=== PATIENT | female | born 2005 | race Hispanic/Latino ===

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

== ENCOUNTER 2023-08-24 12:53 | Observation (INO) | payer MEDICAID ==
[~2023-08-24] VITALS: Ht 152.4 cm; Wt 61.2 kg
[2023-08-24 13:22] VITALS: BP 110/61; PULSE 93; RESP 18; O2SAT 98
[2023-08-24 14:17] LABS: APPEARANCE,URINE CLOUDY (CLEAR); BILIRUBIN,URINE NEGATIVE (NEGATIVE); COLOR,URINE YELLOW (YELLOW); GLUCOSE, URINE (UA) NEGATIVE (NEGATIVE); KETONES,URINE 10 mg/dL (NEGATIVE); LEUKOCYTE ESTERASE ,URINE 500 Leu/uL (NEGATIVE); NITRATE,URINE NEGATIVE (NEGATIVE); OCCULT BLOOD,URINE NEGATIVE (NEGATIVE); PROTEIN,URINE 20 mg/dL (NEGATIVE); UROBILINOGEN,URINE 0.2 mg/dL (0.2-1.0)
[2023-08-24 14:21] LABS: ADD UA MICROSCOPIC YES
[2023-08-24 14:28] LABS: BACTERIA,URINE RARE /HPF (None Seen); MUCUS,URINE FEW LPF (None Seen); OTHER CASTS, URINE 1 /LPF (None Seen); SQUAMOUS EPITHELIAL CELL,UR MANY /HPF (0-2)
[2023-08-24] MEDS: CEFTRIAXONE 1G VIAL IM ONE (14:55)
== END 2023-08-24 15:55 | disposition home or self-care (01) ==
LOC: EDH 12:53 → LDH 13:36
PROVIDERS: ADMIT Internal Medicine; ATTEND Internal Medicine
DX: O26.892 Other specified pregnancy related conditions, second trimester (principal); R10.2 Pelvic and perineal pain; Z3A.23 23 weeks gestation of pregnancy
CPT/HCPCS: 96372; 87077; 87088; 87186; 81001; 76857; G0378 ×2; G0379; J0696

== ENCOUNTER 2024-05-07 19:20 | Emergency (ER) | payer MEDICAID ==
[~2024-05-07] VITALS: Ht 165.1 cm; Wt 59.0 kg
[2024-05-07 19:51] LABS: BASOPHILS # (AUTO) 0.01 K/uL (0.00-0.20); BASOPHILS % (AUTO) 0.1 % (0.0-5.0); EOSINOPHILS # (AUTO) 0.01 K/uL (0.00-0.70); EOSINOPHILS % (AUTO) 0.1 % (0.0-8.0); IMMATURE GRANULOCYTE ABSOLUTE 0.05 K/uL (0-1); LYMPHOCYTES # (AUTO) 0.6 K/uL (1.0-4.8); LYMPHOCYTES % (AUTO) 4.3 % (21.0-51.0); MEAN CORPUSCULAR HGB CONC 31.7 g/dL (32.0-36.0); MEAN CORPUSCULAR VOLUME 78.9 fL (80-100); MONOCYTES # (AUTO) 0.9 K/uL (0.1-1.0); MONOCYTES % (AUTO) 6.8 % (3.0-13.0); NEUTROPHILS # (AUTO) 11.2 K/uL (1.8-7.7); NEUTROPHILS % (AUTO) 88.3 % (40.0-77.0); PLATELET COUNT (AUTO) 256 K/uL (130-400); RED BLOOD CELL COUNT(AUTO) 4.56 MIL/uL (4.00-5.50); RED CELL DISTRIBUTION WIDTH 15.4 % (11.0-15.5); WHITE BLOOD COUNT (AUTO) 12.7 K/uL (4.8-10.8)
[2024-05-07 19:56] LABS: APPEARANCE,URINE CLOUDY (CLEAR); BILIRUBIN,URINE NEGATIVE (NEGATIVE); COLOR,URINE COLORLESS (YELLOW); GLUCOSE, URINE (UA) NEGATIVE (NEGATIVE); KETONES,URINE 20 mg/dL (NEGATIVE); LEUKOCYTE ESTERASE ,URINE 250 Leu/uL (NEGATIVE); NITRATE,URINE NEGATIVE (NEGATIVE); OCCULT BLOOD,URINE LARGE (NEGATIVE); PROTEIN,URINE 70 mg/dL (NEGATIVE); UROBILINOGEN,URINE 0.2 mg/dL (0.2-1.0)
[2024-05-07] MEDS: 0.9%NACL 1000ML 1,000 ML IV STA (19:59)
[2024-05-07 20:01] LABS: ADD UA MICROSCOPIC YES
[2024-05-07 20:02] LABS: CREATININE 0.6 mg/dL (0.5-1.0); POTASSIUM 3.5 mmol/L (3.5-5.1)
[2024-05-07 20:03] LABS: BACTERIA,URINE RARE /HPF (None Seen); MUCUS,URINE RARE LPF (None Seen); SQUAMOUS EPITHELIAL CELL,UR FEW /HPF (0-2)
[2024-05-07 20:04] LABS: AMPHET/METH SCREEN,URINE NEGATIVE (NEGATIVE); BARBITURATE SCREEN, URINE NEGATIVE (NEGATIVE); BENZODIAZEPINES SCREEN,URINE NEGATIVE (NEGATIVE); CANNABINOID SCREEN,URINE NEGATIVE (NEGATIVE); COCAINE SCREEN,URINE NEGATIVE (NEGATIVE); OPIATE SCREEN,URINE NEGATIVE (NEGATIVE); PHENCYCLIDINE SCREEN,URINE NEGATIVE (NEGATIVE)
--- NOTE | 2024-05-07 20:50 | HMCIMG ---
ULTRASOUND OF THE PELVIS ULTRASOUND ABD VASCULAR LIMITED INDICATION: Pelvic pain COMPARISONS: None TECHNIQUE: Transabdominal real-time sonographic images were acquired earlier, and subsequently made available for review. FINDINGS: The uterus measures 10.1 x 5.8 x 5.8 cm. The uterus is normal in echotexture and contour. Single live intrauterine gestation corresponds to sonographic gestational age of 7 weeks 4 days +/- 2 days based on crown-rump length of 1.3 cm. No abnormal subchorionic hypoechoic area demonstrated. heart rate = 174 BPM. The right ovary measures 2.0 x 2.2 x 1.6 cm. The right ovary is normal in size, shape and echogenicity. No right adnexal masses demonstrated. Color Doppler flow is normal throughout the right ovary. Spectral Doppler analysis demonstrates a normal waveform pattern. The left ovary measures 2.3 x 1.8 x 2.2 cm. The left ovary is normal in size, shape and echogenicity. No left adnexal masses demonstrated. Color Doppler flow is normal throughout the left ovary. Spectral Doppler analysis demonstrates a normal waveform pattern. No free pelvic fluid demonstrated. IMPRESSION: 1. Single live intrauterine gestation corresponding to sonographic gestational age of 7 weeks 4 days +/- 2 days based on crown-rump length, and with heart rate = 174 BPM. 2. No evidence for subchorionic hemorrhage. 3. SHAHEEN = 12/23/2024.
[2024-05-07] MEDS ORDERED: CEPH500B PO (21:22)
[2024-05-07] MEDS: acetaMINOPHEN 500 MG TABLET PO ONE (21:23)
[2024-05-07] MEDS: cefTRIAXone 1G VIAL IVPB STA (21:23)
--- NOTE | 2024-05-07 21:23 | ERN ---
ED Note History of Present Illness Stated Complaint: OB UNKNOWN GESTATION, LOWER ABDOMINAL PAIN,VAG BLE Chief Complaint: OB<20 weeks gest. Time Seen by MD: 19:23 Time Seen by Midlevel: 19:26 Dictation: 18-year-old female arriving by EMS coming in with complaints of lower abdominal pain and spotting started today. Patient states she is , unknown gestational age, does not remember her LMP. G5, P4. Allergies: Coded Allergies: No Known Allergies (Unverified Allergy, Unknown, 08/22/19) Home Meds Reported Medications Melatonin (Melatonin) 1 Mg Tablet, 1 MG PO HS, TAB 11/17/20 Rzs223/FA/Omega3/Dha/Fish Oil ( Gummies) 1 Each Tab.chew, 1 EACH PO BID, TAB.CHEW 11/17/20 [id number]/FA/Omega3/Dha/Fish Oil ( Gummies) 1 Each Tab.chew, 1 EACH PO DAILY, TAB.CHEW 10/11/19 Past Medical History Past Medical History: Other Additional Past Medical Hx: ADHD Surgical History: None : 5 Para: 4 Review of System Dictation Constitutional: Negative for fever,chills, and weight loss Eyes: Negative for injury, pain,redness, and discharge ENT: Negative for injury,pain or swelling Cardiovascular: Negative for chest pain, palpitations, and edema Respiratory: Negative for shortness of breath, cough, and wheezing, Abdomen/GI: Lower abdominal pain, no nausea, no vomiting, no diarrhea, and no constipation Back: Negative for injury and pain : Negative for injury, bleeding and discharge MS/Extremity: Negative for injury and deformity Skin: Negative for rash, and discoloration Neuro: Negative for headache, weakness, numbness, tingling, and seizure Psych: Negative for suicide ideation, homicidal ideation, and hallucinations Review of Systems: was completed Initial Vital Sign VS Vital Signs Date Time Temp Pulse Resp B/P (MAP) Pulse Ox O2 Delivery O2 Flow Rate FiO2 05/07/24 19:22 98.1 124 20 116/54 100 Room Air 0 05/07/24 20:03 21 Physical Exam Dictation General: awake, alert, NAD Head/Face: Normocephalic, atraumatic Eyes: PERRL, EOMI, vision at baseline ENT: oral cavity clear, TMs clear, no signs of infection Neck: Trachea midline, supple, no nuchal rigidity Cardiovascular: RRR, normal S1/S2, No MRGs, no JVD Respiratory: CTAB, no respiratory distress, No rales or wheezes Abdomen: Soft, non-tender, non-distended, normal bowel sounds, no guarding or rebound. Skin: Warm, dry, normal turgor, no rash MS/Extremity: Pulses equal, no cyanosis, neurovascular intact, FROM Neuro: COAx4, GCS 15, strength 5/5, CN 2-12 intact, normal cerebellar exam, normal gait, Psych: Normal behavior, mood, and affect normal Results (Laboratory/Radiology) Laboratory/Radiology Laboratory Tests Test 05/07/24 19:38 White Blood Count 12.7 K/uL (4.8-10.8) H Red Blood Count 4.56 MIL/uL (4.00-5.50) Hemoglobin 11.4 g/dL (12.0-16.0) L Hematocrit 36.0 % (36-48) Mean Corpuscular Volume 78.9 fL (80-100) L Mean Corpuscular Hemoglobin 25.0 pg (27.0-33.0) L Mean Corpuscular Hemoglobin Concent 31.7 g/dL (32.0-36.0) L Red Cell Distribution Width 15.4 % (11.0-15.5) Platelet Count 256 K/uL (130-400) Mean Platelet Volume 10.3 fL (7.5-10.5) Immature Granulocyte % (Auto) 0.4 % (0-1) Neutrophils (%) (Auto) 88.3 % (40.0-77.0) H Lymphocytes (%) (Auto) 4.3 % (21.0-51.0) L Monocytes (%) (Auto) 6.8 % (3.0-13.0) Eosinophils (%) (Auto) 0.1 % (0.0-8.0) Basophils (%) (Auto) 0.1 % (0.0-5.0) Neutrophils # (Auto) 11.2 K/uL (1.8-7.7) H Lymphocytes # (Auto) 0.6 K/uL (1.0-4.8) L Monocytes # (Auto) 0.9 K/uL (0.1-1.0) Eosinophils # (Auto) 0.01 K/uL (0.00-0.70) Basophils # (Auto) 0.01 K/uL (0.00-0.20) Absolute Immature Granulocyte (auto 0.05 K/uL (0-1) Nucleated Red Blood Cells 0.0 % (0.0-0.19) White Cell Morphology Comment See comments Red Blood Cell Morphology ANISO 1+ Urine Color COLORLESS (YELLOW) Urine Appearance CLOUDY (CLEAR) H Urine pH 7.0 (5.0-8.0) Urine Specific [place] 1.006 (1.001-1.031) Urine Protein 70 mg/dL (NEGATIVE) H Urine Glucose (UA) NEGATIVE mg/dL (NEGATIVE) Urine Ketones 20 mg/dL (NEGATIVE) H Urine Occult Blood LARGE (NEGATIVE) H Urine Nitrate NEGATIVE (NEGATIVE) Urine Bilirubin NEGATIVE mg/dL (NEGATIVE) Urine Urobilinogen 0.2 mg/dL (0.2-1.0) Urine Leukocyte Esterase 250 Jennifer/uL (NEGATIVE) H Urine RBC 11-25 /HPF (0-1) H Urine WBC 11-25 /HPF (0-1) H Urine Squamous Epithelial Cells FEW /HPF (0-2) Urine Bacteria RARE /HPF (None Seen) Sodium Level 139 mmol/L (136-145) Potassium Level 3.5 mmol/L (3.5-5.1) Chloride Level 100 mmol/L (101-111) L Carbon Dioxide Level 27 mmol/L (21-32) Blood Urea Nitrogen 7 mg/dL (7-18) Creatinine 0.6 mg/dL (0.5-1.0) Glomerular Filtration Rate Calc 132 mL/min (>90) Random Glucose 99 mg/dL (70-105) Total Calcium 9.6 mg/dL (8.5-10.1) Human Chorionic Gonadotropin, Quant 55437 mIU/mL (0-5) H Urine Opiates Screen NEGATIVE (NEGATIVE) Urine Barbiturates Screen NEGATIVE (NEGATIVE) Urine Phencyclidine Screen NEGATIVE (NEGATIVE) Urine Amphetamines Screen NEGATIVE (NEGATIVE) Urine Benzodiazepines Screen NEGATIVE (NEGATIVE) Urine Cocaine Screen NEGATIVE (NEGATIVE) Urine Marijuana (THC) Screen NEGATIVE (NEGATIVE) Labs Reviewed?: Yes Ultrasound Comment: [address] [address] IMAGING REPORT Signed PATIENT: VIKRAM MURRAY MR#: [id number] : 2005 SEX: F AGE: 18 LOCATION: [facility] ORDER 29 STATUS: REG ER REPORT#: [id number] SERVICE 26 REASON: lower abdominal pain ORDERING PHYSICIAN: ARELIS FRIED NP PROCEDURE: OB <14 - US OB <14 WEEKS ULTRASOUND OF THE PELVIS ULTRASOUND ABD VASCULAR LIMITED INDICATION: Pelvic pain COMPARISONS: None TECHNIQUE: Transabdominal real-time sonographic images were acquired earlier, and subsequently made available for review. FINDINGS: The uterus measures 10.1 x 5.8 x 5.8 cm. The uterus is normal in echotexture and contour. Single live intrauterine gestation corresponds to sonographic gestational age of 7 weeks 4 days +/- 2 days based on crown-rump length of 1.3 cm. No abnormal subchorionic hypoechoic area demonstrated. heart rate = 174 BPM. The right ovary measures 2.0 x 2.2 x 1.6 cm. The right ovary is normal in size, shape and echogenicity. No right adnexal masses demonstrated. Color Doppler flow is normal throughout the right ovary. Spectral Doppler analysis demonstrates a normal waveform pattern. The left ovary measures 2.3 x 1.8 x 2.2 cm. The left ovary is normal in size, shape and echogenicity. No left adnexal masses demonstrated. Color Doppler flow is normal throughout the left ovary. Spectral Doppler analysis demonstrates a normal waveform pattern. No free pelvic fluid demonstrated. IMPRESSION: 1. Single live intrauterine gestation corresponding to sonographic gestational age of 7 weeks 4 days +/- 2 days based on crown-rump length, and with heart rate = 174 BPM. 2. No evidence for subchorionic hemorrhage. 3. SHAHEEN = 12/23/2024. DICTATED BY: LOLLY STODDARD MD DATE: 05/07/242045 ELECTRONICALLY SIGNED BY: LOLLY STODDARD MD DATE: 05/07/242049 ED Course ED Course Orders Procedure Category Date Status Time Cbc With Differential LAB 05/07/24 Complete 19:27 Basic Metabolic Panel LAB 05/07/24 Complete 19:27 Hcg,Quantitative LAB 05/07/24 Complete 19:27 Urinalysis Profile LAB 05/07/24 Complete 19:27 Drug Screen Urine LAB 05/07/24 Complete 19:27 Us Ob <14 Weeks US 05/07/24 Resulted 19:27 0.9%Nacl 1000ml (Ns PHA 05/07/24 Complete 1000ml) 19:56 Culture Urine ERENDIRA 05/07/24 In Process 20:01 Acetaminophen 500mg PHA 05/07/24 In Process Tab (Tylenol 500mg T 21:30 Ceftriaxone 1g Vial PHA 05/07/24 Complete (Rocephine 1g Inj) 21:09 Current Medications Medications (Trade) Dose Ordered Sig/Carlyle Route PRN Reason Start Time Stop Time Status Last Admin Dose Admin Acetaminophen (TYLenol 500MG TAB) 1,000 mg ONCE ONCE PO 05/07/24 21:30 05/07/24 21:31 Sodium Chloride 1,000 ml @ 1,000 mls/hr Q1H STAT IV 05/07/24 19:56 05/07/24 20:55 DC 05/07/24 19:59 Vital Signs Date Time Temp Pulse Resp B/P (MAP) Pulse Ox O2 Delivery O2 Flow Rate FiO2 05/07/24 21:05 99.0 116 18 110/65 100 Room Air* 0 21 05/07/24 20:03 99.1 114 18 122/85 100 Room Air* 0 21 05/07/24 19:22 98.1 124 20 116/54 100 Room Air 0 Medical Decision Making MDM MDM: 18-year-old female arriving by EMS coming in with complaints of lower abdominal pain and spotting started today. Patient states she is , unknown gestational age, does not remember her LMP. G5, P4.CBC shows mild leukocytosis of 12, mild microcytic anemia, no thrombocytopenia. Chemistry shows hypokalemia, NS given in the ER. Kidney function [place] [address]. UA shows evidence of urinary tract infection, fluids and Rocephin given in the emergency room. While patient has in ER had a large clot when she went to go urinate. Ultrasound was done after the expulsion of the clot. Ultrasound shows single live IUP gestational age of seven weeks and four days, heart rate of 174, no evidence of subchorionic hemorrhage. Discussed findings with the patient, educated patient she needs to follow up with the OBGYN within the next week. Educated on signs and symptoms to return back to the emergency room. Patient verbalized understanding, answered all questions. Differential diagnosis: Threatened , miscarriage, subchorionic bleed, urinary tract infection Rationale: Tests considered and ordered secondary to shared decision making include: Previous outside records reviewed: Old ER visits. Risk of complication and/or morbidity or mortality of patient management: None Medications-Per medication reconciliation Need for hospitalization: Patient does not meet criteria for hospitalization. Need for emergency major/minor surgery: No There are no social concerns with this patient. Prescription drug management Prescriptions will include symptomatic care Patient's prior external medical records from other ER visits were reviewed by me as indicated. Prior testing and results from previous visits were reviewed. Prior tests were taken into account with medical decision making and resource utilization, independent historian/historians were used to obtain complete medical history. I independently interpreted the test that were performed, results were reviewed by me and considered findings on radiology if ordered. Medical management and examination interpretation discussions were had by me with other qualified healthcare professionals as indicated for the patient's care. DX & DISP Disposition: Discharge Departure Impression: Primary Impression: Threatened Additional Impression: Urinary tract infection Condition: Stable Scripts Cephalexin Monohydrate (Keflex) 500 Mg Cap 500 MG PO BID for 7 Days, #28 CAP Prov: ARELIS FRIED RECYCLER [employer]KL[employer] DRIVER TRUCK DRIVER 05/07/24 Additional Instructions: Please take the antibiotic as prescribed you have a urinary [place]. [place] [address]. Your ultrasound showed your seven weeks . You baby's heart rate is 175. You need to follow up with the OBGYN within this week maintain bed rest until cleared by OBGYN. Return to the emergency room via you have any worsening symptoms. For pain you can take only Tylenol. Referrals: SELF,REFERRAL (PCP) Time of Disposition: 21:21 I have reviewed the case, and I agree with, Diagnosis and Plan ARELIS FRIED NP May 07, 2024 21:23
[2024-05-07 21:33] VITALS: BP 101/64; PULSE 82; RESP 18; TEMP 99; O2SAT 99
== END 2024-05-07 21:44 | disposition home or self-care (01) ==
LOC: EDH 19:20
DX: O20.0 Threatened abortion (principal); O23.41 Unspecified infection of urinary tract in pregnancy, first trimester; N39.0 Urinary tract infection, site not specified; Z3A.01 Less than 8 weeks gestation of pregnancy; Z79.899 Other long term (current) drug therapy
CPT/HCPCS: 99285; 96365; 76801; 96361; 80048; 80305; 84702; 85025; 87086 ×2; 87186; 81001; 36415; J0696

== ENCOUNTER 2024-09-04 11:56 | Emergency (ER) | payer MEDICAID ==
[~2024-09-04] VITALS: Ht 162.6 cm; Wt 65.8 kg
[~2024-09-04 11:56] MED LIST changes: +CEPH500B PO
[2024-09-04 11:58] VITALS: BP 123/71
--- NOTE | 2024-09-04 13:23 | ERN ---
ED Note History of Present Illness Stated Complaint: WANTS TO KNOW IF SHE'S Chief Complaint: Other Problems Time Seen by MD: 11:59 Time Seen by Midlevel: 12:01 Dictation: 18-year-old female with no past medical history coming in wanting to know if she is . Has no complaints. Denies any vaginal bleeding vaginal pain urinary symptoms. Allergies: Coded Allergies: No Known Allergies (Unverified Allergy, Unknown, 08/22/19) Home Meds Active Scripts Cephalexin Monohydrate (Keflex) 500 Mg Cap, 500 MG PO BID for 7 Days, #28 CAP Prov:ARELIS FRIED SUPERVISOR [employer]LECTRONICS PROCESSING 05/07/24 Reported Medications Melatonin (Melatonin) 1 Mg Tablet, 1 MG PO HS, TAB 11/17/20 Fvk315/FA/Omega3/Dha/Fish Oil ( Gummies) 1 Each Tab.chew, 1 EACH PO BID, TAB.CHEW 11/17/20 Bjy381/FA/Omega3/Dha/Fish Oil ( Gummies) 1 Each Tab.chew, 1 EACH PO DAILY, TAB.CHEW 10/11/19 Past Medical History Past Medical History: Other Additional Past Medical Hx: ADHD Surgical History: None : 5 Para: 4 Review of System Dictation Constitutional: Negative for fever,chills, and weight loss Eyes: Negative for injury, pain,redness, and discharge ENT: Negative for injury,pain or swelling Cardiovascular: Negative for chest pain, palpitations, and edema Respiratory: Negative for shortness of breath, cough, and wheezing, Abdomen/GI: Negative for abdominal pain, nausea, vomiting, diarrhea, and constipation Back: Negative for injury and pain : Negative for injury, bleeding and discharge MS/Extremity: Negative for injury and deformity Skin: Negative for rash, and discoloration Neuro: Negative for headache, weakness, numbness, tingling, and seizure Psych: Negative for suicide ideation, homicidal ideation, and hallucinations Review of Systems: was completed Initial Vital Sign VS Vital Signs Date Time Temp Pulse Resp B/P (MAP) Pulse Ox O2 Delivery O2 Flow Rate FiO2 09/04/24 11:58 97.5 88 16 123/71 99 Room Air Physical Exam Dictation General: awake, alert, NAD Head/Face: Normocephalic, atraumatic Eyes: PERRL, EOMI, vision at baseline ENT: oral cavity clear, TMs clear, no signs of infection Neck: Trachea midline, supple, no nuchal rigidity Cardiovascular: RRR, normal S1/S2, No MRGs, no JVD Respiratory: CTAB, no respiratory distress, No rales or wheezes Abdomen: Soft, non-tender, non-distended, normal bowel sounds, no guarding or rebound. Skin: Warm, dry, normal turgor, no rash MS/Extremity: Pulses equal, no cyanosis, neurovascular intact, FROM Neuro: COAx4, GCS 15, strength 5/5, CN 2-12 intact, normal cerebellar exam, normal gait, Psych: Normal behavior, mood, and affect normal Results (Laboratory/Radiology) Laboratory/Radiology Laboratory Tests Test 09/04/24 12:33 Human Chorionic Gonadotropin, Quant 4483 mIU/mL (0-5) H Labs Reviewed?: Yes ED Course ED Course Orders Procedure Category Date Status Time Hcg,Quantitative LAB 09/04/24 Complete 12:07 Vital Signs Date Time Temp Pulse Resp B/P (MAP) Pulse Ox O2 Delivery O2 Flow Rate FiO2 09/04/24 11:58 97.5 88 16 123/71 99 Room Air Medical Decision Making MDM MDM: 18-year-old female with no past medical history coming in wanting to know if she is as she does not know when her last menstrual period was. Has no complaints. Denies any vaginal bleeding vaginal pain urinary symptoms. HCG positive. Discussed findings with the patient. Educated patient she needs to follow up with the OBGYN. Report to the hospital if she begins with vaginal bleeding, vaginal discomfort, vaginal discharge or any abdominal pain. Patient verbalized understanding, answered all questions. Differential diagnosis: , no Rationale: Tests considered and ordered secondary to shared decision making include: Previous outside records reviewed: Old ER visits. Risk of complication and/or morbidity or mortality of patient management: None Medications-Per medication reconciliation Need for hospitalization: Patient does not meet criteria for hospitalization. Need for emergency major/minor surgery: No There are no social concerns with this patient. Prescription drug management Prescriptions will include symptomatic care Patient's prior external medical records from other ER visits were reviewed by me as indicated. Prior testing and results from previous visits were reviewed. Prior tests were taken into account with medical decision making and resource utilization, independent historian/historians were used to obtain complete medical history. I independently interpreted the test that were performed, results were reviewed by me and considered findings on radiology if ordered. Medical management and examination interpretation discussions were had by me with other qualified healthcare professionals as indicated for the patient's care. DX & DISP Disposition: Discharge Departure Impression: Primary Impression: Condition: Stable Additional Instructions: Your hCG is positive. You are . Follow up with an OBGYN. If you start to have any vaginal bleeding vaginal discharge or severe abdominal pain return to the hospital that has a OBGYN services. Referrals: VANDANA MAYS MD (PCP) Time of Disposition: 13:22 I have reviewed the case, and I agree with, Diagnosis and Plan ARELIS FRIED NP September 04, 2024 13:23
[2024-09-04 14:28] VITALS: PULSE 70; RESP 16; TEMP 98.3; O2SAT 98
== END 2024-09-04 14:39 | disposition home or self-care (01) ==
LOC: EDH 11:56
DX: O26.891 Other specified pregnancy related conditions, first trimester (principal); R10.2 Pelvic and perineal pain
CPT/HCPCS: 36415; 84702; 99283